=== PATIENT | female | born 1960 | race African-American/Black ===

== ENCOUNTER 2021-07-22 12:59 | Emergency (ER) | payer MEDICARE ==
[~2021-07-22] VITALS: Ht 167.6 cm; Wt 87.5 kg
[2021-07-22] MEDS ORDERED: DICYCLOMINE HCL10 MG PO (14:41)
== END 2021-07-22 14:43 | disposition home or self-care (01) ==
LOC: ER 14:40
DX: R19.7 Diarrhea, unspecified (principal); R10.9 Unspecified abdominal pain; I10 Essential (primary) hypertension; E11.9 Type 2 diabetes mellitus without complications; F17.200 Nicotine dependence, unspecified, uncomplicated; Z88.6 Allergy status to analgesic agent
CPT/HCPCS: 99282

== ENCOUNTER → 2021-12-26 | Outpatient (CLI) | payer MEDICARE, OTHER ==
[~2021-12-26] MED LIST: DICYCLOMINE HCL10 MG PO
== END ==
LOC: RAD 11:23
PROVIDERS: ATTEND Anesthesiology Addiction Medicine
DX: M79.671 Pain in right foot (principal); M79.672 Pain in left foot